=== PATIENT | male | born 1985 | race Caucasian/White ===

== ENCOUNTER 2023-12-20 07:29 | Outpatient (CLI) | payer BC, SELFPAY | END 2023-12-20 07:30 | disposition home or self-care (01) | LOC: NFLDREF 12-31 14:26 | PROVIDERS: PCP Family Medicine; Referring Provider Family Medicine; Visit Provider Family Medicine | DX: Z13.1 Encounter for screening for diabetes mellitus (principal); Z13.9 Encounter for screening, unspecified; Z13.6 Encounter for screening for cardiovascular disorders | CPT/HCPCS: 80048; 80061 ==

== ENCOUNTER 2024-01-05 09:22 | Outpatient (CLI) | payer BC, SELFPAY | END 2024-01-05 09:23 | disposition home or self-care (01) | LOC: NFLDREF 01-07 06:55 | PROVIDERS: PCP Family Medicine; Referring Provider Family Medicine; Visit Provider Family Medicine | DX: D64.9 Anemia, unspecified (principal); R53.83 Other fatigue; K20.0 Eosinophilic esophagitis | CPT/HCPCS: 80076; 82306; 82607; 82728; 82746; 83540; 83550; 84270; 84402; 84403; 84443 ==

== ENCOUNTER 2024-02-23 07:09 | Outpatient (CLI) | payer BC, SELFPAY | END 2024-02-23 07:10 | disposition home or self-care (01) | LOC: NFLDREF 02-25 10:57 | PROVIDERS: PCP Family Medicine; Referring Provider Family Medicine; Visit Provider Family Medicine | DX: D64.9 Anemia, unspecified (principal) | CPT/HCPCS: 82728; 83540; 83550 ==

== ENCOUNTER 2024-03-22 14:33 | Outpatient (REF) | payer BC, SELFPAY | END 2024-03-22 14:34 | disposition home or self-care (01) | LOC: NPINS 14:33 | PROVIDERS: PCP Family Medicine; Visit Provider Internal Medicine Gastroenterology | DX: K29.80 Duodenitis without bleeding (principal) | CPT/HCPCS: 86258; 86364 ==

== ENCOUNTER 2024-12-21 07:31 | Outpatient (CLI) | payer BC, SELFPAY | END 2024-12-21 07:32 | disposition home or self-care (01) | LOC: NFLDREF 12-22 07:08 | PROVIDERS: PCP Family Medicine; Referring Provider Family Medicine; Visit Provider Family Medicine | DX: R79.89 Other specified abnormal findings of blood chemistry (principal); Z13.1 Encounter for screening for diabetes mellitus; Z13.6 Encounter for screening for cardiovascular disorders; Z12.5 Encounter for screening for malignant neoplasm of prostate | CPT/HCPCS: 80053; 80061; 82728; G0103 ==